=== PATIENT | female | born 1960 | race American Indian/Alaskan Native ===

== ENCOUNTER 2021-12-27 15:42 | Outpatient (CLI) | payer BC ==
--- NOTE | 2021-12-29 14:55 | Mammography Report ---
DIGITAL SCREENING MAMMOGRAM WITH CAD, 12/27/2021 CLINICAL INFORMATION / INDICATION: Routine screening mammography TECHNIQUE: Digital 2D mammography was obtained in the craniocaudal and mediolateral oblique projectio ns. This examination was interpreted with the benefit of Computer-Aided Detection analysis. COMPARISON: 07/19/2020, 06/25/2016 FINDINGS: Breast Density: The breasts are almost entirely fatty. No dominant mass, suspicious calcifications, or architectural distortion in either breast. Mild benign-appearing nodularity is again seen bilaterally. IMPRESSION: No mammographic evidence of malignancy. Follow up recommendation: Routine yearly screening mammogram. BI-RADS Category 2: BENIGN. A "normal" or negative report should not discourage follow up or biopsy of a clinically significant f inding. A written summary of these findings will be mailed to the patient. The patient will be entered into a mammography reporting system which will generate a reminder letter for the patient's next appointmen t at the appropriate interval. The [employer] recommends yearly mammograms starting at age 40 and continuing as l annel as a woman is in good health. Breast MRI is recommended for women with an approximate 20-25% or greater lifetime risk of breast cancer, including women with a strong family history of breast or ova yanick cancer or who have been treated for Hodgkin's disease. Signer Name: Win Molina MD Signed: 12/29/2021 2:51 PM Workstation Name: [id number]
== END 2021-12-27 15:43 | disposition home or self-care (01) ==
LOC: SPVWC 15:42
PROVIDERS: ATTEND Internal Medicine
DX: Z12.31 Encounter for screening mammogram for malignant neoplasm of breast (principal)
CPT/HCPCS: 77067